=== PATIENT | female | born 1950 | race Caucasian/White ===

== ENCOUNTER 2019-05-08 10:33 | Observation (INO) ==
[2019-05-08 11:30] LABS: Basophils % 0.2 %; Eosinophils % 0.1 %; Hemoglobin 12.8 g/dL (11.5-15.4); Immature Granulocytes % 1.1 % (0-4); Lymphocytes # 0.9 K/mcL (0.6-4.6); Lymphocytes % 11.1 %; Mean Corpuscular HGB Conc 31.2 g/dL (31.6-35.5); Mean Corpuscular Hemoglobin 24.9 pg (28.0-33.3); Mean Corpuscular Volume 79.8 fL (83.0-100.0); Mean Platelet Volume 9.7 fL (9.4-12.4); Monocytes # 0.6 K/mcL (0.0-1.3); Monocytes % 6.8 %; Neutrophils # 6.6 K/mcL (1.6-8.9); Platelet Count 296 K/mcL (140-400); Red Blood Count 5.14 M/mcL (3.82-4.97); Segmented Neutrophils % 80.7 %; White Blood Count 8.2 K/mcL (4.3-11.1)
[2019-05-08 11:44] LABS: BUN/Creatinine Ratio 19 (6-26); Blood Urea Nitrogen 10 mg/dL (8-23); Carbon Dioxide 30 mEq/L (23-29); Chloride 97 mEq/L (98-107); Glucose 119 mg/dL (70-105); Osmolality,Calculated 284 (280-300); Potassium 3.1 mEq/L (3.5-5.1); Sodium 137 mEq/L (136-145); Troponin I < 0.03 ng/mL (< 0.04); eGFR For African Americans > 60 (> 60); eGFR For Non-African Americans > 60 (> 60)
[2019-05-08] MEDS ORDERED: Ipratropium/Albuterol Neb 3 ML IH PRN (13:22)
[2019-05-08] MEDS: *HR* Heparin 5,000 UNIT/ML VIAL SQ SCH ×4 (15:22→21:38)
[2019-05-08] MEDS: Ipratropium/Albuterol Neb 3 ML IH SCH ×3 (15:34→21:57)
[2019-05-08 17:20] LABS: Adenovirus Not Detected (Not Detect); Bordetella Pertussis Not Detected (Not Detect); Chlamydophila pneumoniae Not Detected (Not Detect); Coronavirus 229E Not Detected (Not Detect); Coronavirus HKU1 Not Detected (Not Detect); Coronavirus NL63 Not Detected (Not Detect); Coronavirus OC43 Not Detected (Not Detect); Human Metapneumovirus Not Detected (Not Detect); Human Rhinovirus/Enterovirus Not Detected (Not Detect); Influenza A Subtype 2009 H1 DETECTED (Not Detect); Influenza B Not Detected (Not Detect); Mycoplasma pneumoniae Not Detected (Not Detect); Parainfluenza Virus 1 Not Detected (Not Detect); Parainfluenza Virus 2 Not Detected (Not Detect); Parainfluenza Virus 3 Not Detected (Not Detect); Parainfluenza Virus 4 Not Detected (Not Detect); Respiratory Syncytial Virus Not Detected (Not Detect)
[2019-05-08] MEDS: Acetaminophen 325 MG TABLET PO PRN (19:59)
[2019-05-08] MEDS ORDERED: *HR* Promethazine 25 MG/ML VIAL IVP ONE (20:18)
[2019-05-09] MEDS: Ipratropium/Albuterol Neb 3 ML IH SCH ×4 (03:49→22:02)
[2019-05-09] MEDS: Acetaminophen 325 MG TABLET PO PRN ×2 (08:55→19:05)
[2019-05-09 09:09] LABS: BUN/Creatinine Ratio 20 (6-26); Blood Urea Nitrogen 10 mg/dL (8-23); Calcium 10.1 mg/dL (8.6-10.3); Carbon Dioxide 30 mEq/L (23-29); Chloride 99 mEq/L (98-107); Glucose 102 mg/dL (70-105); Osmolality,Calculated 285 (280-300); Potassium 3.1 mEq/L (3.5-5.1); Sodium 138 mEq/L (136-145); eGFR For African Americans > 60 (> 60); eGFR For Non-African Americans > 60 (> 60)
[2019-05-09] MEDS: MethylPREDNISolone 40 MG/ML VIAL IVP SCH ×2 (10:10→16:59)
[2019-05-09] MEDS: amLODIPine 5 MG TABLET PO SCH (12:20)
[2019-05-09] MEDS: *HR* Heparin 5,000 UNIT/ML VIAL SQ SCH ×2 (14:09→21:09)
[2019-05-10] MEDS: Ipratropium/Albuterol Neb 3 ML IH SCH ×4 (03:10→22:15)
[2019-05-10] MEDS: Acetaminophen 325 MG TABLET PO PRN ×3 (03:23→19:31)
[2019-05-10] MEDS: *HR* Heparin 5,000 UNIT/ML VIAL SQ SCH (04:06)
[2019-05-10 04:34] LABS: BUN/Creatinine Ratio 21 (6-26); Blood Urea Nitrogen 11 mg/dL (8-23); Calcium 10.7 mg/dL (8.6-10.3); Carbon Dioxide 30 mEq/L (23-29); Chloride 101 mEq/L (98-107); Glucose 184 mg/dL (70-105); Osmolality,Calculated 290 (280-300); Potassium 3.1 mEq/L (3.5-5.1); Sodium 138 mEq/L (136-145); eGFR For African Americans > 60 (> 60); eGFR For Non-African Americans > 60 (> 60)
[2019-05-10] MEDS: MethylPREDNISolone 40 MG/ML VIAL IVP SCH ×2 (05:53→17:48)
[2019-05-10] MEDS: amLODIPine 5 MG TABLET PO SCH (10:01)
[2019-05-10] MEDS: hydroCHLOROthiazide 25 MG TABLET PO SCH (10:02)
[2019-05-11 01:07] LABS: BUN/Creatinine Ratio 27 (6-26); Blood Urea Nitrogen 15 mg/dL (8-23); Calcium 10.5 mg/dL (8.6-10.3); Carbon Dioxide 27 mEq/L (23-29); Chloride 103 mEq/L (98-107); Glucose 200 mg/dL (70-105); Magnesium 1.5 mg/dL (1.6-2.6); Osmolality,Calculated 286 (280-300); Potassium 3.9 mEq/L (3.5-5.1); Sodium 135 mEq/L (136-145); eGFR For African Americans > 60 (> 60); eGFR For Non-African Americans > 60 (> 60)
[2019-05-11] MEDS: Ipratropium/Albuterol Neb 3 ML IH SCH ×2 (03:19→10:57)
[2019-05-11] MEDS: MethylPREDNISolone 40 MG/ML VIAL IVP SCH (06:08)
[2019-05-11] MEDS: Acetaminophen 325 MG TABLET PO PRN (06:10)
[2019-05-11 06:55] VITALS: BP 143/86
[2019-05-11] MEDS: hydroCHLOROthiazide 25 MG TABLET PO SCH (09:10)
[2019-05-11] MEDS: amLODIPine 5 MG TABLET PO SCH (09:11)
== END 2019-05-11 14:17 | disposition home or self-care (01) ==
LOC: EMEROOARM 10:33 → 3BNU 10:33 → SUATTDRO 14:03 → 3BNU 14:59
PROVIDERS: ADMIT Internal Medicine; ATTEND Internal Medicine